=== PATIENT | female | born 1960 | race Two or more races ===

== ENCOUNTER 2018-05-09 23:40 | Inpatient (IN) | payer OTHER ==
[~2018-05-09] VITALS: Ht 152.4 cm; Wt 82.3 kg
[2018-05-10] MEDS ORDERED: SODIUM CHLORIDE FLUSH 10ML SYR IVF ONE (00:30)
[2018-05-10] MEDS ORDERED: LISI1TAB7 PO (00:40)
[2018-05-10 00:43] LABS: BASOPHILS # (AUTO) 0.03 x10^3/uL (0-0.1); BASOPHILS % (AUTO) 0 % (0-1); EOSINOPHILS # (AUTO) 0.14 x10^3/uL (0-0.4); EOSINOPHILS % (AUTO) 1 % (1-7); LYMPHOCYTES # (AUTO) 2.52 x10^3/uL (1-3.4); LYMPHOCYTES % (AUTO) 24 % (22-44); MD NO; MEAN CORPUSCULAR HGB CONC 33.9 g/dL (32.4-35.8); MEAN CORPUSCULAR VOLUME 88.5 fL (80-100); MONOCYTES # (AUTO) 0.49 x10^3/uL (0.2-0.8); MONOCYTES % (AUTO) 5 % (2-9); NEUTROPHILS # (AUTO) 7.48 x10^3/uL (1.8-6.8); NEUTROPHILS % (AUTO) 70 % (42-75); PLATELET COUNT 238 x10^3/uL (130-400); RED BLOOD COUNT 4.64 x10^6/uL (3.82-5.3); RED CELL DISTRIBUTION WIDTH 13.1 % (9.6-15.2)
[2018-05-10 00:55] LABS: ALANINE AMINOTRANSFERASE 41 U/L (12-78); ALBUMIN 3.8 g/dL (3.4-5.0); ANION GAP 7 mmol/L (5-15); CALCIUM 8.9 mg/dL (8.5-10.1); CHLORIDE 102 mmol/L (98-107); CREATININE 0.59 mg/dL (0.55-1.02)
[2018-05-10 00:59] LABS: ALKALINE PHOSPHATASE 141 U/L (45-117); BILIRUBIN,TOTAL 0.5 mg/dL (0.2-1.0); TOTAL PROTEIN 8.5 g/dL (6.4-8.2); TROPONIN I < 0.015 ng/mL (0.000-0.045)
[2018-05-10] MEDS ORDERED: LABETALOL 5MG/ML, 20ML ONE (01:40)
[2018-05-10] MEDS ORDERED: LABETALOL 5MG/ML, 20ML IVPush ONE (02:00)
[2018-05-10 02:28] LABS: INTERNATIONAL NORMALIZED RATIO 0.97 (0.93-1.1)
[2018-05-10] MEDS ORDERED: ACETAMINOPHEN 650 MG/20.3 ML UDC PO PRN (03:00)
[2018-05-10] MEDS ORDERED: LABETALOL 5MG/ML, 20ML IV PRN (03:00)
[2018-05-10] MEDS ORDERED: POTASSIUM CHLORIDE 40 MEQ in SODIUM CHLORIDE 0.9% 500 ML IV ONE (03:00)
[2018-05-10] MEDS ORDERED: PROMETHAZINE 25 MG/ML, 1ML IM PRN (03:00)
[2018-05-10] MEDS ORDERED: morphine SULFATE 10 MG/ML, 1ML IVPush PRN (03:00)
[2018-05-10] MEDS ORDERED: BISACODYL 10 MG SUPP PR PRN (03:00)
[2018-05-10] MEDS ORDERED: INSTRUCTION SEE COMMENTS XX SCH (03:00)
[2018-05-10] MEDS ORDERED: ONDANSETRON 2MG/ML, 2ML IVPush PRN (03:00)
[2018-05-10] MEDS ORDERED: POLYETHYLENE GLYCOL 17 GM PACKET PO PRN (03:00)
[2018-05-10] MEDS ORDERED: DOCUSATE 100 MG CAPSULE PO PRN (03:00)
[2018-05-10] MEDS ORDERED: ONDANSETRON 4 MG TABLET PO PRN (03:00)
[2018-05-10] MEDS ORDERED: SENNA/DOCUSATE TABLET PO PRN (03:00)
[2018-05-10 03:15] LABS: HEMOGLOBIN A1C 6.8 % (4.2-6.3)
[2018-05-10] MEDS ORDERED: GADOBUTROL 7.5 MMOL/7.5 ML PFS ONE (03:48)
[2018-05-10 05:44] LABS: BASOPHILS # (AUTO) 0.01 x10^3/uL (0-0.1); BASOPHILS % (AUTO) 0 % (0-1); EOSINOPHILS # (AUTO) 0.02 x10^3/uL (0-0.4); EOSINOPHILS % (AUTO) 0 % (1-7); LYMPHOCYTES # (AUTO) 1.66 x10^3/uL (1-3.4); LYMPHOCYTES % (AUTO) 17 % (22-44); MD NO; MEAN CORPUSCULAR HEMOGLOBIN 30.2 pg (27.0-34.8); MEAN CORPUSCULAR VOLUME 88.8 fL (80-100); MEAN PLATELET VOLUME 9.3 fL (7.4-10.4); MONOCYTES # (AUTO) 0.26 x10^3/uL (0.2-0.8); MONOCYTES % (AUTO) 3 % (2-9); NEUTROPHILS # (AUTO) 7.72 x10^3/uL (1.8-6.8); NEUTROPHILS % (AUTO) 80 % (42-75); PLATELET COUNT 219 x10^3/uL (130-400); RED BLOOD COUNT 4.41 x10^6/uL (3.82-5.3); RED CELL DISTRIBUTION WIDTH 13.4 % (9.6-15.2)
[2018-05-10 05:55] LABS: CHLORIDE 103 mmol/L (98-107)
[2018-05-10 06:11] LABS: ALANINE AMINOTRANSFERASE 36 U/L (12-78); ALBUMIN 3.4 g/dL (3.4-5.0); ALKALINE PHOSPHATASE 118 U/L (45-117); ANION GAP 10 mmol/L (5-15); BILIRUBIN,TOTAL 0.8 mg/dL (0.2-1.0); CALCIUM 8.9 mg/dL (8.5-10.1); CREATININE 0.67 mg/dL (0.55-1.02); TOTAL PROTEIN 7.5 g/dL (6.4-8.2)
[2018-05-10] MEDS: OXYcodone 5 MG/5 ML ORAL.SOL UDC PO PRN ×2 (06:44→18:51)
[2018-05-10] MEDS ORDERED: GADOBUTROL 10 MMOL/10 ML VIAL ONE (08:19)
[2018-05-10] MEDS ORDERED: SODIUM CHLORIDE 0.9% 1,000ML IVBOLUS ONE (11:30)
[2018-05-10 13:30] VITALS: BP 105/67
[2018-05-10 19:27] VITALS: BP 118/77
[2018-05-10 21:05] LABS: CULTURE INDICATED? YES; MICROSCOPIC AUTO
[2018-05-11] MEDS: OXYcodone 5 MG/5 ML ORAL.SOL UDC PO PRN ×2 (01:03→15:04)
[2018-05-11 04:00] VITALS: BP 112/68
[2018-05-11 06:00] LABS: CHOL/HDL RATIO 5.1; LDL/HDL RATIO 2.4 (0.5-3.0)
[2018-05-11 07:37] VITALS: BP 111/68
[2018-05-11] MEDS ORDERED: TEMPLATE NON-FORMULARY MED. (Lisinopril/Hydrochlorothiazide** (Lisinopril-Hctz 20-25 Mg Ta PO SCH (09:30)
[2018-05-11] MEDS ORDERED: LISINOPRIL 20 MG TABLET PO SCH (10:00)
[2018-05-11] MEDS: HYDROCHLOROTHIAZIDE 25 MG TABLET PO SCH (10:17)
[2018-05-11 13:29] VITALS: BP 143/86
[2018-05-11] MEDS ORDERED: hydrALAzine 20 MG/ML, 1ML IV PRN (19:00)
[2018-05-11 19:05] VITALS: BP 158/83
[2018-05-11] MEDS: LISINOPRIL 20 MG TABLET PO SCH (21:40)
[2018-05-12 01:11] VITALS: BP 110/65
[2018-05-12 08:12] VITALS: BP 114/72
[2018-05-12] MEDS: LISINOPRIL 20 MG TABLET PO SCH (09:28)
[2018-05-12] MEDS: HYDROCHLOROTHIAZIDE 25 MG TABLET PO SCH (09:28)
[2018-05-12] MEDS ORDERED: LISI-170 PO (10:20)
[2018-05-12] MEDS ORDERED: HYDR25TA6 PO (10:20)
[2018-05-12] MEDS ORDERED: SIMV20TA3 PO (10:20)
[2018-05-12] MEDS ORDERED: SIMVASTATIN 20 MG TABLET PO SCH (21:00)
== END 2018-05-12 14:18 | disposition home or self-care (01) | DRG 66 ==
LOC: ED 05-10 02:19 → EDIP 05-10 02:24 → ED 05-10 02:36 → CCU 05-10 04:24 → 4WST 05-10 12:00 → DCLOUNGE 05-12 14:10
PROVIDERS: ADMIT Internal Medicine; ATTEND Internal Medicine
DX: I60.9 Nontraumatic subarachnoid hemorrhage, unspecified (principal); E78.5 Hyperlipidemia, unspecified; E87.6 Hypokalemia; I15.8 Other secondary hypertension; Z91.14 Patient's other noncompliance with medication regimen
CPT/HCPCS: 36415; 70450; 70545; 70546; 70553; 71045; 80053; 80061; 81001; 83036; 84484; 85025; 85610; 85730; 87081; 87086; 93005; 93306; 93880; 96374; A9585; J2405; J3480; Q0162; 92523-GN; J7030; J7040; J7050